=== PATIENT | female | born 1985 | race Caucasian/White ===

== ENCOUNTER 2021-05-21 19:17 | Emergency (ER) | payer OTHER ==
[~2021-05-21] VITALS: Ht 177.8 cm; Wt 86.2 kg
[2021-05-21] MEDS ORDERED: CEPH500 PO (22:11)
[2021-05-21] MEDS ORDERED: Norco 5-325 Ta1 EACH PO (22:11)
[2021-05-22] MEDS ORDERED: Cephalexin500 M1 PO (11:24)
[2021-05-22] MEDS ORDERED: Norco 5-325 Ta1 EACH PO (11:24)
== END 2021-05-21 22:42 | disposition home or self-care (01) ==
LOC: ER 19:17
DX: S62.632A Displaced fracture of distal phalanx of right middle finger, initial encounter for closed fracture (principal); S61.312A Laceration without foreign body of right middle finger with damage to nail, initial encounter; W19.XXXA Unspecified fall, initial encounter
CPT/HCPCS: 12002; 73120; 99283-25; A9270